=== PATIENT | male | born 1970 | race Two or more races ===

== ENCOUNTER 2024-07-20 19:46 | Emergency (ER) | payer OTHER ==
[~2024-07-20] VITALS: Ht 167.6 cm; Wt 100.0 kg
[2024-07-20 20:15] VITALS: PULSE 109; O2SAT 97
[2024-07-20] MEDS: SODIUM CHLORIDE 0.9% 2,000 ML IV ONE (20:34)
[2024-07-20] MEDS: PIPERACILLIN-TAZO 4.5GM 100 ML IV ONE (20:36)
[2024-07-20] MEDS: ACETAMINOPHEN 500 MG TAB PO ONE (20:37)
[2024-07-20] MEDS: IBUPROFEN 800 MG TAB PO ONE (20:41)
[2024-07-20 20:58] LABS: Basophils # (auto) 0.1 10 ^3/uL (0-0.2); Basophils % (auto) 0.6 % (0.0-2.0); Eosinophils # (auto) 0 10 ^3/uL (0-0.8); Eosinophils % (auto) 0.5 % (0.0-7.0); Hematocrit 44.4 % (41.0-53.0); Hemoglobin 15.1 g/dL (13.5-17.5); Lymphocytes # (auto) 0.2 10 ^3/uL (0.4-5.4); Lymphocytes % (auto) 1.9 % (10.0-50.0); Mean Corpuscular Hemoglobin 28.2 pg (28.0-32.0); Mean Corpuscular Volume 82.8 fL (80.0-100.0); Monocytes # (auto) 0.4 10 ^3/uL (0-1.3); Monocytes % (auto) 4.3 % (0.0-12.0); Neutrophils # (auto) 9.4 10 ^3/uL (1.6-8.6); Neutrophils % (auto) 92.7 % (37.0-80.0); Platelet Count (auto) 171 10^3/uL (140-450); Red Blood Cells 5.37 10^6/uL (4.5-5.90); Red Cell Distribution Width 13.9 % (11.8-14.3); White Blood Cell 10.1 10^3/uL (4.4-10.8)
[2024-07-20 21:19] LABS: Alanine Aminotransferase 41 U/L (7-40); Albumin 4.3 g/dL (3.2-4.8); Alkaline Phosphatase 63 U/L (46-116); Anion Gap 8 (5-15); Aspartate Aminotransferase 25 U/L (13-40); BUN/Creatinine Ratio 11.3 (10.0-20.0); Blood Urea Nitrogen 12 mg/dL (9-23); Calcium 9.4 mg/dL (8.7-10.4); Carbon Dioxide 23 mmol/L (20-30); Chloride 106 mmol/L (98-107); Glucose 128 mg/dL (74-106); Potassium 3.5 mmol/L (3.5-5.1); Sodium 137 mmol/L (136-145)
[2024-07-20 21:20] LABS: Bilirubin, Total 1.4 mg/dL (0.2-1.0); Total Protein 7.4 g/dL (5.7-8.2)
[2024-07-20 21:59] LABS: Urine Bacteria None Seen /hpf (None Seen)
[2024-07-20 22:00] VITALS: TEMP 98.9
[2024-07-20] MEDS: ONDANSETRON HCL 4 MG/2 ML VIAL IV ONE (22:10)
[2024-07-20] MEDS: VANCOMYCIN 1GM/200ML 200 ML IV ONE (22:14)
[2024-07-20] MEDS: MORPHINE SULFATE 4 MG/ML SYR/VIAL IV ONE (22:14)
[2024-07-20 22:21] LABS: Urine Blood Negative /uL (Negative); Urine Clarity Clear (Clear); Urine Color Light-Yellow (Yellow); Urine Protein, UAD Negative (Negative); Urine Specific Gravity 1.016 (1.001-1.035); Urine Urobilinogen Normal (Negative); Urine WBC <1 /hpf (0 - 3)
[2024-07-20] MEDS: KETOROLAC TROMETH 30 MG/ML 1ML VIAL IV ONE (22:32)
[2024-07-20 22:44] LABS: COVID19 ANTIGEN SOFIA FIA NEGATIVE (NEGATIVE)
[2024-07-20 23:53] LABS: Rapid Influenza A Negative (Negative); Rapid Influenza B Negative (Negative)
[2024-07-21] MEDS ORDERED: IBUP-1455 PO (00:38)
[2024-07-21] MEDS ORDERED: ACET-1304 PO (00:38)
[2024-07-21] MEDS ORDERED: BACDST PO (00:38)
[2024-07-21 00:48] VITALS: BP 97/64; PULSE 80; RESP 13; O2SAT 98
== END 2024-07-21 00:52 | disposition home or self-care (01) ==
LOC: ER 19:46 → EDBD 19:46 → ER 07-21 00:52
DX: R50.9 Fever, unspecified (principal); Z20.822 Contact with and (suspected) exposure to COVID-19
CPT/HCPCS: 36415; 71045; 72192; 80053; 81001; 83605; 85025; 87040; 87426; 87804; 93005; 96365; 96366; 96368; 96375; 99285; J1885; J2270; J2405; J2543; J3370; J7030